=== PATIENT | male | born 1965 | race Caucasian/White ===

== ENCOUNTER 2019-12-12 11:27 | Outpatient (CLI) | payer OTHER ==
[~2019-12-12 11:27] MED LIST: ALEVE220 M1 PO; CEFADROXIL500 MG PO; PERCOCET 5/321 UDTAB PO
== END 2019-12-12 17:03 | disposition home or self-care (01) ==
LOC: SONOGRAMA 11:27
PROVIDERS: ATTEND Pathology Anatomic Pathology & Clinical Pathology
DX: E04.2 Nontoxic multinodular goiter (principal)